=== PATIENT | male | born 1955 | race Caucasian/White ===

== ENCOUNTER 2020-01-15 12:56 | Emergency (ER) | payer MEDICAID ==
[2020-01-15 13:19] VITALS: BP 157/76; PULSE 54
--- NOTE | 2020-01-15 13:50 | EDM.PDOC ---
ED HPI GENERAL MEDICAL PROBLEM - General Chief Complaint: ENT Problem Stated Complaint: BLOODY NOSE THAT WON'T STOP Time Seen by Provider: 01/15/20 13:30 Source of Information: Reports: Patient History Limitations: Reports: No Limitations - History of Present Illness INITIAL COMMENTS - FREE TEXT/NARRATIVE: 64-year-old male with persistent epistaxis from the left nares for the past 3- 1/2 hours. He tried pressure and its not stopping. He is on Eliquis. No trauma, no recent illness. Onset: Sudden (3-1/2 hours ago) Location: Reports: Other (Left nares) - Related Data Allergies Allergy/AdvReac Type Severity Reaction Status Date / Time No Known Allergies Allergy Verified 11/10/18 10:13 Home Meds: Home Meds Clopidogrel Bisulfate [Clopidogrel] 75 mg PO DAILY 11/26/14 [History] FLUoxetine HCl [Fluoxetine] 20 mg PO DAILY 11/26/14 [History] Metoprolol Succinate [Toprol XL] 12.5 mg PO DAILY 11/26/14 [History] allopurinoL [Zyloprim] 100 mg PO DAILY 11/26/14 [History] atorvaSTATin Calcium [Atorvastatin Calcium] 40 mg PO BEDTIME 11/26/14 [History] Tamsulosin HCl [Flomax] 0.4 mg PO DAILY 11/10/18 [History] Triamcinolone Acetonide [Triamcinolone Acetonide 0.1% Crm] 1 applic TOP BID 11/10/18 [History] Apixaban [Eliquis] 5 mg PO BID 01/15/20 [History] Celecoxib [CeleBREX] 100 mg PO BID 01/15/20 [History] Past Medical History HEENT History: Reports: Hard of Hearing, Impaired Vision Cardiovascular History: Reports: Aneurysm, CAD, Heart Murmur, Heart Valve Replacement, Other (See Below) 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 Respiratory History: Reports: None Gastrointestinal History: Reports: Hemorrhoids Genitourinary History: Reports: Prostate Disorder Musculoskeletal History: Reports: Arthritis, Back Pain, Chronic, Fracture, Gout Psychiatric History: Reports: Anxiety, Depression Hematologic History: Reports: Blood Transfusion(s) Dermatologic History: Reports: Other (See Below) Other Dermatologic History: history of athletes foot - Infectious Disease History Infectious Disease History: Reports: Other (See Below) Other Infectious Disease History: states unknown - Past Surgical History HEENT Surgical History: Reports: Other (See Below) Other HEENT Surgeries/Procedures: Detached retinas times two Cardiovascular Surgical History: Reports: Cardiac Ablation, Carotid Stents, Valve Replacement GI Surgical History: Reports: Colonoscopy, Hernia, Inguinal Neurological Surgical History: Reports: Spinal Fusion, Other (See Below) Other Neurological Surgeries/Procedures: arthritic cyst removed from cervical spine, according to patient; history of herniated disc and stenosis Musculoskeletal Surgical History: Reports: Arthroscopic Knee Other Musculoskeletal Surgeries/Procedures:: Back surgery Dermatological Surgical History: Reports: None Social & Family History - Family History Family Medical History: Noncontributory - Tobacco Use Tobacco Use Status *Q: Former Tobacco User Used Tobacco, but Quit: Yes Month/Year Tobacco Last Used: 1986 - Caffeine Use Caffeine Use: Reports: Soda - Recreational Drug Use Recreational Drug Use: No ED ROS ENT - Review of Systems Review Of Systems: See Below Constitutional: Denies: Fever, Chills HEENT: Denies: Rhinitis, Sinus Problem Respiratory: Denies: Shortness of Breath Cardiovascular: Denies: Chest Pain GI/Abdominal: Reports: Nausea. Denies: Vomiting (7) Skin: Reports: No Symptoms Neurological: Denies: Headache ED EXAM, ENT - Physical Exam Exam: See Below Exam Limited By: No Limitations General Appearance: Alert, Anxious Nose: Other (Fresh bleeding is occurring from the left nares despite pressure) Head: Atraumatic Respiratory/Chest: No Respiratory Distress, Lungs Clear Neurological: Alert, Oriented Psychiatric: Anxious Skin: Warm, Dry Course - Vital Signs Last Recorded V/S: Last Vital Signs Temp 96.7 F L 01/15/20 13:15 Pulse 54 L 01/15/20 13:15 Resp 16 01/15/20 13:15 BP 157/76 H 01/15/20 13:15 Pulse Ox 94 L 01/15/20 13:15 - Re-Assessments/Exams Free Text/Narrative Re-Assessment/Exam: 01/15/20 13:49 All the clots were blown out of the left nares, and a 5.5 cm rapid Rhino was placed without difficulty. This stopped the bleeding. He will remove the packing in 24 hours. Return sooner if concerns or complications such as reinitiation of bleeding. Departure - Departure Time of Disposition: 13:58 Disposition: Home, Self-Care 01 Clinical Impression: Left-sided epistaxis - Discharge Information Instructions: Nosebleed, Adult Referrals: Elmo Schmidt MD [Primary Care Provider] - Forms: ED Department Discharge Care Plan Goals: Keep packing in for 24 hours, then remove area and remove packing if no further problems. A small amount of extra air may be helpful if bleeding recurs. Return anytime if not controlling the bleeding despite the packing in place. Sepsis Event Note (ED) - Evaluation Sepsis Screening Result: No Definite Risk - Focused Exam Vital Signs: Vital Signs Temp Pulse Resp BP Pulse Ox 01/15/20 13:15 96.7 F L 54 L 16 157/76 H 94 L
== END 2020-01-15 13:58 | disposition home or self-care (01) ==
LOC: JP.ED 12:56
DX: R04.0 Epistaxis (principal); F41.9 Anxiety disorder, unspecified; F32.9 Major depressive disorder, single episode, unspecified; M19.90 Unspecified osteoarthritis, unspecified site; I25.10 Atherosclerotic heart disease of native coronary artery without angina pectoris; Z87.891 Personal history of nicotine dependence; Z79.899 Other long term (current) drug therapy
CPT/HCPCS: 30903; 99283-25

== ENCOUNTER 2020-04-13 20:37 | Emergency (ER) | payer MEDICAID ==
[2020-04-13] MEDS ORDERED: Sodium Chloride 0.9% 10 ML Syringe FLUSH PRN (21:08)
[2020-04-13] MEDS ORDERED: Sodium Chloride 0.9% 1,000 ML IV ONE (21:22)
--- NOTE | 2020-04-13 22:37 | EDM.PDOC ---
ED HPI GENERAL MEDICAL PROBLEM - General Chief Complaint: General Stated Complaint: FEVER,WEAKNESS Time Seen by Provider: 04/13/20 20:45 Source of Information: Reports: Patient, Old Records History Limitations: Reports: No Limitations - History of Present Illness INITIAL COMMENTS - FREE TEXT/NARRATIVE: Demetrio is a 64-year-old male presenting to the ED for evaluation of generalized body aches, fever, nausea and vomiting, and diarrhea. Patient has had symptoms for the last several weeks. 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 Since the evaluation in the clinic earlier today the patient has developed a fever to 101.3 F, body aches, headache, nausea with repeated vomiting, and diarrhea. The patient was diagnosed with COVID-19 on 03/23/2020. He had symptoms 7 days prior to this. He has never fully recovered since the onset of the symptoms. He did request his primary care provider put him on an antibiotic for the Covid and he just completed the course of it. Is unclear what that antibiotic was. Patient does have a history significant for a porcine pulmonary valve and a history of atrial flutter. denies pain Pain Score (Numeric/FACES): 0 - Related Data Allergies Allergy/AdvReac Type Severity Reaction Status Date / Time No Known Allergies Allergy Verified 04/13/20 21:06 Home Meds: Home Meds Clopidogrel Bisulfate [Clopidogrel] 75 mg PO DAILY 11/26/14 [History] FLUoxetine HCl [Fluoxetine] 20 mg PO DAILY 11/26/14 [History] Metoprolol Succinate [Toprol XL] 12.5 mg PO DAILY 11/26/14 [History] allopurinoL [Zyloprim] 100 mg PO DAILY 11/26/14 [History] atorvaSTATin Calcium [Atorvastatin Calcium] 40 mg PO BEDTIME 11/26/14 [History] Tamsulosin HCl [Flomax] 0.4 mg PO DAILY 11/10/18 [History] Triamcinolone Acetonide [Triamcinolone Acetonide 0.1% Crm] 1 applic TOP BID 11/10/18 [History] Apixaban [Eliquis] 5 mg PO BID 01/15/20 [History] Celecoxib [CeleBREX] 100 mg PO BID 01/15/20 [History] Dorzolamide/Timolol [Cosopt 2%-0.5% Ophth Soln] 1 drop EYEBOTH BID 04/13/20 [History] Vancomycin [Vancocin 125 MG/5 ML Soln] 125 mg PO QID 10 Days #200 ml 04/13/20 [Rx] Past Medical History HEENT History: Reports: Hard of Hearing, Impaired Vision Cardiovascular History: Reports: Aneurysm, CAD, Heart Murmur, Heart Valve Replacement, High Cholesterol, Other (See Below) 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 Respiratory History: Reports: None Gastrointestinal History: Reports: Hemorrhoids Genitourinary History: Reports: Prostate Disorder Musculoskeletal History: Reports: Arthritis, Back Pain, Chronic, Fracture, Gout, Other (See Below) Other Musculoskeletal History: 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 Neurological History: Reports: None Psychiatric History: Reports: Anxiety, Depression Hematologic History: Reports: Anticoagulation Therapy, Blood Transfusion(s) Dermatologic History: Reports: Other (See Below) Other Dermatologic History: history of athletes foot - Infectious Disease History Infectious Disease History: Reports: Novel Coronavirus, Other (See Below) Other Infectious Disease History: states unknown - Past Surgical History HEENT Surgical History: Reports: Other (See Below) Other HEENT Surgeries/Procedures: Detached retinas times two Cardiovascular Surgical History: Reports: Cardiac Ablation, Carotid Stents, Valve Replacement GI Surgical History: Reports: Colonoscopy, Hernia, Inguinal, Other (See Below) Neurological Surgical History: Reports: Spinal Fusion, Other (See Below) Other Neurological Surgeries/Procedures: arthritic cyst removed from cervical spine, according to patient; history of herniated disc and stenosis Musculoskeletal Surgical History: Reports: Arthroscopic Knee Other Musculoskeletal Surgeries/Procedures:: Back surgery Dermatological Surgical History: Reports: None Social & Family History - Family History Family Medical History: No Pertinent Family History - Tobacco Use Tobacco Use Status *Q: Former Tobacco User Used Tobacco, but Quit: Yes Month/Year Tobacco Last Used: 1986 - Caffeine Use Caffeine Use: Reports: Soda - Recreational Drug Use Recreational Drug Use: No ED ROS GENERAL - Review of Systems Review Of Systems: See Below Constitutional: Reports: Fever, Chills, Malaise, Decreased Appetite HEENT: Reports: No Symptoms Respiratory: Reports: No Symptoms Cardiovascular: Reports: No Symptoms Endocrine: Reports: Fatigue GI/Abdominal: Reports: Abdominal Pain, Diarrhea, Nausea, Vomiting : Reports: No Symptoms Musculoskeletal: Reports: Muscle Pain Skin: Reports: No Symptoms Neurological: Reports: Headache Psychiatric: Reports: No Symptoms Hematologic/Lymphatic: Reports: No Symptoms Immunologic: Reports: No Symptoms ED EXAM, GENERAL - Physical Exam Exam: See Below Exam Limited By: No Limitations General Appearance: Alert, Mild Distress Eye Exam: Bilateral Eye: EOMI, PERRL Throat/Mouth: Normal Inspection, Normal Lips, Normal Teeth, Normal Oropharynx, Normal Voice, No Airway Compromise Head: Atraumatic, Normocephalic Neck: Normal Inspection, Supple, Non-Tender, Full Range of Motion. No: Lymphadenopathy (R), Lymphadenopathy (L) Respiratory/Chest: No Respiratory Distress, Lungs Clear, Normal Breath Sounds, No Accessory Muscle Use Cardiovascular: Normal Peripheral Pulses, Regular Rate, Rhythm, No Murmur GI/Abdominal: Soft, No Abnormal Bruit, Tender (Mild generalized tenderness), Abnormal Bowel Sounds (Increased bowel sounds). No: Guarding, Rigid, Rebound Back Exam: Normal Inspection, Full Range of Motion Extremities: Normal Inspection, Normal Range of Motion, No Pedal Edema, Normal Capillary Refill Neurological: Alert, Oriented, Normal Cognition, No Motor/Sensory Deficits Psychiatric: Normal Affect, Normal Mood Skin Exam: Warm, Dry Lymphatic: No Adenopathy Course - Vital Signs Last Recorded V/S: Last Vital Signs Temp 36.0 C L 04/13/20 21:00 Pulse 62 04/13/20 21:00 Resp 16 04/13/20 21:00 BP 113/67 04/13/20 21:00 Pulse Ox 93 L 04/13/20 21:00 - Orders/Labs/Meds Orders: Active Orders 24 hr Category Date Time Status CLOS DIFFICILE PCR W/REFLEX [RM] Stat Lab 04/13/20 22:17 Results CLOSTRIDIUM DIFFICILE TOXIN [RM] Stat Lab 04/13/20 22:17 Results Sodium Chloride 0.9% [Saline Flush] Med 04/13/20 21:08 Active 10 ml FLUSH ASDIRECTED PRN Saline Lock Insert [OM.PC] Routine Oth 04/13/20 21:08 Ordered Medication Orders Sodium Chloride (Saline Flush) 10 ml FLUSH ASDIRECTED PRN PRN Reason: Keep Vein Open Last Admin: 04/13/20 21:30 Dose: 10 ml Documented by: DAVIAN Labs: Laboratory Tests 04/13/20 04/13/20 04/13/20 Range/Units 21:25 21:25 21:25 D-Dimer, Quantitative 372.55 (0.0-500.0) ng/mL Lactic Acid 0.7 (0.4-2.0) mmol/L Ferritin 101 (8-388) ng/ml C-Reactive Protein 2.61 H (0.0-0.3) mg/dL Procalcitonin ng/mL Urine Color (YELLOW) Urine Appearance (CLEAR) Urine pH (5.0-8.0) Ur Specific [place] (1.008-1.030) Urine Protein (NEGATIVE) mg/dL Urine Glucose (UA) (NEGATIVE) mg/dL Urine Ketones (NEGATIVE) mg/dL Urine Occult Blood (NEGATIVE) Urine Nitrite (NEGATIVE) Urine Bilirubin (NEGATIVE) Urine Urobilinogen (0.2-1.0) EU/dL Ur Leukocyte Esterase (NEGATIVE) Urine RBC (0-5) Urine WBC (0-5) Ur Epithelial Cells Amorphous Sediment Urine Bacteria Urine Mucus 04/13/20 04/13/20 Range/Units 21:25 22:17 D-Dimer, Quantitative (0.0-500.0) ng/mL Lactic Acid (0.4-2.0) mmol/L Ferritin (8-388) ng/ml C-Reactive Protein (0.0-0.3) mg/dL Procalcitonin 0.08 ng/mL Urine Color Yellow (YELLOW) Urine Appearance Clear (CLEAR) Urine pH 5.5 (5.0-8.0) Ur Specific [place] >= 1.030 (1.008-1.030) Urine Protein 30 H (NEGATIVE) mg/dL Urine Glucose (UA) Negative (NEGATIVE) mg/dL Urine Ketones Trace H (NEGATIVE) mg/dL Urine Occult Blood Negative (NEGATIVE) Urine Nitrite Positive H (NEGATIVE) Urine Bilirubin Small H (NEGATIVE) Urine Urobilinogen 0.2 (0.2-1.0) EU/dL Ur Leukocyte Esterase Negative (NEGATIVE) Urine RBC 0-5 (0-5) Urine WBC 0-5 (0-5) Ur Epithelial Cells Not seen Amorphous Sediment Not seen Urine Bacteria Rare Urine Mucus Many Meds: Medications Generic Name Dose Route Start Last Admin Trade Name Freq PRN Reason Stop Dose Admin Sodium Chloride 10 ml 04/13/20 21:08 04/13/20 21:30 Saline Flush FLUSH 10 ml ASDIRECTED PRN Administration Keep Vein Open Discontinued Medications Generic Name Dose Route Start Last Admin Trade Name Rohini PRN Reason Stop Dose Admin Sodium Chloride 1,000 mls @ 999 mls/hr 04/13/20 21:22 04/13/20 21:30 Normal Saline IV 04/13/20 22:22 999 mls/hr .BOLUS ONE Administration Vancomycin HCl 125 mg 04/13/20 23:36 Vancocin 250 Mg/5 Ml Soln PO 04/13/20 23:37 ONETIME STA - Re-Assessments/Exams Free Text/Narrative Re-Assessment/Exam: 04/13/20 22:37 reviewed the patient's labs from the clinic earlier today showing a CBC with a leukocytosis count of 14.1. Unfortunate there is no differential on that. His comprehensive metabolic panel is unremarkable. We obtained Covid labs including a ferritin, lactic acid, D-dimer, procalcitonin, and CRP. The only abnormality is his CRP is elevated at 2.6. Urinalysis was obtained showing positive nitrate and bili but no evidence for infection. 04/13/20 23:41 C. difficile toxin assay is positive consistent with acute C. difficile colitis. We will start the patient on vancomycin 125 mg 4 times daily for 10 days to treat this. 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 We will send him home with a prescription for Zofran so he is able to remain hydrated. Patient is feeling better after receiving IV normal saline. He should follow up with his primary care provider later next week to ensure that he is improving from the C. difficile colitis. Indications return to the ED were discussed. Departure - Departure Time of Disposition: 23:43 Disposition: Home, Self-Care 01 Condition: Fair Clinical Impression: Nausea vomiting and diarrhea, Clostridium difficile colitis, Dehydration - Discharge Information *PRESCRIPTION DRUG MONITORING PROGRAM REVIEWED*: Not Applicable *COPY OF PRESCRIPTION DRUG MONITORING REPORT IN PATIENT CHERYL: Not Applicable Prescriptions: Vancomycin [Vancocin 125 MG/5 ML Soln] 125 mg PO QID 10 Days #200 ml Instructions: Clostridioides Difficile Infection, Rehydration, Adult, Nausea and Vomiting, Adult, [id number], Food Choices to Help Relieve Diarrhea, Adult Referrals: Elmo Schmidt MD [Primary Care Provider] - Forms: ED Department Discharge Care Plan Goals: It appears by your work-up today that you have developed antibiotic induced C. difficile colitis which is an infection involving the large intestine causing significant pain and diarrhea. This is a relatively difficult infection to treat and is only susceptible to vancomycin and linezolid. We will start you on vancomycin 125 mg 4 times a day for the next 10 days. The diarrhea will likely continue until the infection improves. I would like you to follow-up with your primary care provider, Dr. Schmidt, towards the latter part of next week for a recheck. I am also sending you home with a prescription for Zofran to keep your nausea under control so that you may remain hydrated. Sepsis Event Note (ED) - Evaluation Sepsis Screening Result: No Definite Risk - Focused Exam Vital Signs: Vital Signs Temp Pulse Resp BP Pulse Ox 04/13/20 21:00 36.0 C L 62 16 113/67 93 L 04/13/20 20:57 36.0 C L 62 16 113/67 93 L - Problem List & Annotations (1) Clostridium difficile colitis SNOMED Code(s): 879572779 Code(s): A04.72 - ENTEROCOLITIS D/T CLOSTRIDIUM DIFFICILE, NOT SPCF RECUR Status: Acute Priority: High Current Visit: Yes (2) Dehydration SNOMED Code(s): 54991627 Code(s): E86.0 - DEHYDRATION Status: Acute Priority: High Current Visit: Yes (3) Nausea vomiting and diarrhea SNOMED Code(s): 1390894 Code(s): R11.2 - NAUSEA WITH VOMITING, UNSPECIFIED; R19.7 - DIARRHEA, UNSPECIFIED Status: Acute Priority: High Current Visit: Yes - Problem List Review Problem List Initiated/Reviewed/Updated: Yes - My Orders Last 24 Hours: My Active Orders 04/13/20 21:08 Sodium Chloride 0.9% [Saline Flush] 10 ml FLUSH ASDIRECTED PRN Saline Lock Insert [OM.PC] Routine 04/13/20 22:17 CLOS DIFFICILE PCR W/REFLEX [RM] Stat CLOSTRIDIUM DIFFICILE TOXIN [RM] Stat - Assessment/Plan Last 24 Hours: My Active Orders 04/13/20 21:08 Sodium Chloride 0.9% [Saline Flush] 10 ml FLUSH ASDIRECTED PRN Saline Lock Insert [OM.PC] Routine 04/13/20 22:17 CLOS DIFFICILE PCR W/REFLEX [RM] Stat CLOSTRIDIUM DIFFICILE TOXIN [RM] Stat
[2020-04-13] MEDS ORDERED: Vancomycin 250 MG/5 ML ML Oral Solution PO STA (23:36)
[2020-04-13] MEDS ORDERED: Acetaminophen 325 MG Tab PO ONE (23:48)
[2020-04-14] MEDS ORDERED: Vancomycin 250 MG/5 ML ML Oral Solution PO SCH
[2020-04-14 00:13] VITALS: BP 127/73; PULSE 74
== END 2020-04-14 00:21 | disposition home or self-care (01) ==
LOC: JP.ED 20:37
DX: E86.0 Dehydration (principal); A04.72 Enterocolitis due to Clostridium difficile, not specified as recurrent; I25.10 Atherosclerotic heart disease of native coronary artery without angina pectoris; E78.00 Pure hypercholesterolemia, unspecified; M10.9 Gout, unspecified; Z87.891 Personal history of nicotine dependence; Z79.01 Long term (current) use of anticoagulants; Z79.02 Long term (current) use of antithrombotics/antiplatelets; Z79.899 Other long term (current) drug therapy
CPT/HCPCS: 36415; 81001; 82728; 83605; 84145; 85379; 86140; 87493; 99283; A9270; J7030

== ENCOUNTER 2021-07-22 08:08 | Emergency (ER) | payer MEDICAID ==
[2021-07-22 08:36] VITALS: BP 130/77; PULSE 104
[2021-07-22] MEDS ORDERED: Sodium Chloride 0.9% 10 ML Syringe FLUSH PRN (09:05)
[2021-07-22] MEDS ORDERED: Sodium Chloride 0.9% 1,000 ML IV SCH (09:15)
[2021-07-22] MEDS ORDERED: Ibutilide 1 MG/10 ML Vial IVPUSH ONE (09:54)
[2021-07-22] MEDS ORDERED: Propofol 200 MG/20 ML SDV ONE (11:08)
== END 2021-07-22 12:52 | disposition home or self-care (01) ==
LOC: JP.ED 08:08
DX: I48.91 Unspecified atrial fibrillation (principal); I48.92 Unspecified atrial flutter; I25.10 Atherosclerotic heart disease of native coronary artery without angina pectoris; M10.9 Gout, unspecified; E78.00 Pure hypercholesterolemia, unspecified; Z79.02 Long term (current) use of antithrombotics/antiplatelets; Z79.899 Other long term (current) drug therapy; Z86.16 Personal history of COVID-19; Z79.01 Long term (current) use of anticoagulants
CPT/HCPCS: 36415; 80053; 83735; 84484; 85025; 92960; 93005; 93010; 99283; 99285-25; J1742; J2704; J3490; J7030

== ENCOUNTER 2021-09-12 06:23 | Day surgery (SDC) | payer MEDICAID ==
[2021-09-12] MEDS ORDERED: Midazolam 1 MG/ML 2 ML SDV ONE (07:15)
[2021-09-12] MEDS ORDERED: Propofol 200 MG/20 ML SDV ONE (07:15)
[2021-09-12] MEDS ORDERED: fentaNYL 100 MCG/2 ML SDV ONE (07:15)
[2021-09-12] MEDS ORDERED: Lactated Ringers 1,000 ML IV SCH (07:30)
[2021-09-12 09:32] VITALS: BP 123/58; PULSE 70
== END 2021-09-12 09:37 | disposition home or self-care (01) ==
LOC: JP.SDS 06:23
PROVIDERS: ATTEND Family Medicine
DX: Z12.11 Encounter for screening for malignant neoplasm of colon (principal); I25.10 Atherosclerotic heart disease of native coronary artery without angina pectoris; G47.33 Obstructive sleep apnea (adult) (pediatric); I10 Essential (primary) hypertension; E66.9 Obesity, unspecified; E78.5 Hyperlipidemia, unspecified; Z98.890 Other specified postprocedural states; Z88.8 Allergy status to other drugs, medicaments and biological substances; Z68.31 Body mass index [BMI] 31.0-31.9, adult
CPT/HCPCS: 45378; J2250; J2704; J3010; J7120

== ENCOUNTER 2023-01-05 07:16 | Day surgery (SDC) | payer MEDICARE, BC ==
[~2023-01-05 07:16] MED LIST: Bupivacaine 0.5% 30 ML SDV ONE; Midazolam 1 MG/ML 2 ML SDV ONE; Propofol 200 MG/20 ML SDV ONE; fentaNYL 100 MCG/2 ML SDV ONE
[2023-01-05] MEDS ORDERED: Lidocaine 0.5% 50 ML SDV ONE (07:19)
[2023-01-05] MEDS ORDERED: ceFAZolin 2 GM in Premix Bag 1 BAG IV ONE (07:31)
[2023-01-05] MEDS ORDERED: Nozin Nasal Sanitizer NASBOTH ONE (07:32)
[2023-01-05 07:42] LABS: HEMATOCRIT 42.8 % (38.4-49.7); MEAN CORPUSCULAR HEMOGLOBIN 31.2 pg (31.6-35.5); RED BLOOD CELL COUNT 4.81 M/uL (4.14-5.76); WHITE BLOOD CELL COUNT,WBC 6.4 K/uL (3.2-11.0)
[2023-01-05] MEDS ORDERED: Lactated Ringers 1,000 ML IV SCH (07:45)
[2023-01-05 08:03] LABS: A/G RATIO 1.3 (1.2-2.2); ALANINE AMINOTRANSFERASE,ALT 40 U/L (12-78); ALBUMIN 3.8 g/dL (3.4-5.0); ALKALINE PHOSPHATASE 71 U/L (46-116); ANION GAP 8.8 mmol/L (5.0-14.0); ASPARTATE AMNIOTRANSFERASE,AST 27 U/L (15-37); BILIRUBIN TOTAL 1.2 mg/dL (0.2-1.0); BLOOD UREA NITROGEN,BUN 18 mg/dL (7-18); CALCIUM 8.6 mg/dL (8.5-10.1); CARBON DIOXIDE,CO2 28 mmol/L (21-32); CHLORIDE,CL 104 mmol/L (100-108); CREATININE 0.9 mg/dL (0.8-1.3); ESTIMATED GFR 95 mL/min (>60); GLUCOSE RANDOM 100 mg/dL (74-106); PROTEIN TOTAL,TP 6.8 g/dL (6.4-8.2); SODIUM,NA 141 mmol/L (140-148)
[2023-01-05] MEDS ORDERED: Propofol 200 MG/20 ML SDV ONE ×2 (09:04→09:48)
[2023-01-05 11:42] VITALS: BP 104/63; PULSE 51
== END 2023-01-05 11:55 | disposition home or self-care (01) ==
LOC: JP.SDS 07:16
PROVIDERS: ATTEND Specialist
DX: G56.02 Carpal tunnel syndrome, left upper limb (principal); M18.12 Unilateral primary osteoarthritis of first carpometacarpal joint, left hand; E78.5 Hyperlipidemia, unspecified; I10 Essential (primary) hypertension; I48.91 Unspecified atrial fibrillation; E66.9 Obesity, unspecified; Z88.0 Allergy status to penicillin; Z88.2 Allergy status to sulfonamides; Z88.8 Allergy status to other drugs, medicaments and biological substances
CPT/HCPCS: 25447; 36415; 64721; 80053; 85027; 93005; A9270; C1768; J0690; J2250; J2704; J3010; J3490; J7120

== ENCOUNTER 2023-10-25 08:58 | Emergency (ER) | payer MEDICARE, BC ==
[2023-10-25] MEDS ORDERED: Sodium Chloride 0.9% 10 ML Syringe FLUSH PRN (10:15)
[2023-10-25] MEDS ORDERED: Sodium Chloride 0.9% 80 ML IV SCH (10:15)
[2023-10-25 11:11] VITALS: BP 120/64; PULSE 52
[2023-10-25] MEDS: Iopamidol 612 MG/ML 100 ML Bottle IV PRN (12:09)
== END 2023-10-25 12:43 | disposition home or self-care (01) ==
LOC: JP.ED 08:58
DX: S70.11XA Contusion of right thigh, initial encounter (principal); S80.11XA Contusion of right lower leg, initial encounter; I48.91 Unspecified atrial fibrillation; I25.10 Atherosclerotic heart disease of native coronary artery without angina pectoris; I10 Essential (primary) hypertension; E78.00 Pure hypercholesterolemia, unspecified; Z88.0 Allergy status to penicillin; Z88.2 Allergy status to sulfonamides; Z88.8 Allergy status to other drugs, medicaments and biological substances; Z79.01 Long term (current) use of anticoagulants; Z79.899 Other long term (current) drug therapy; Z86.16 Personal history of COVID-19; W22.8XXA Striking against or struck by other objects, initial encounter; Y93.89 Activity, other specified
CPT/HCPCS: 73502; 73701; 76377; 99284; Q9967

== ENCOUNTER 2023-11-25 05:39 | Emergency (ER) | payer MEDICARE, BC ==
[2023-11-25 05:50] VITALS: BP 151/84; PULSE 62
== END 2023-11-25 06:40 | disposition home or self-care (01) ==
LOC: JP.ED 05:39
DX: M25.562 Pain in left knee (principal); I25.10 Atherosclerotic heart disease of native coronary artery without angina pectoris; I10 Essential (primary) hypertension; E78.00 Pure hypercholesterolemia, unspecified; E66.9 Obesity, unspecified; Z86.16 Personal history of COVID-19; Z87.891 Personal history of nicotine dependence; I48.91 Unspecified atrial fibrillation; Z79.01 Long term (current) use of anticoagulants; Z79.899 Other long term (current) drug therapy; Z88.1 Allergy status to other antibiotic agents; Z88.2 Allergy status to sulfonamides; Z88.8 Allergy status to other drugs, medicaments and biological substances
CPT/HCPCS: 73562-26-LT; 73562-LT; 99283

== ENCOUNTER 2024-12-26 06:07 | Day surgery (SDC) | payer MEDICARE, BC ==
[2024-12-26 06:26] LABS: PLATELET COUNT,PLT 167.0 K/uL (130-375); RED BLOOD CELL COUNT 4.98 M/uL (4.14-5.76); WHITE BLOOD CELL COUNT,WBC 6.7 K/uL (3.2-11.0)
[2024-12-26] MEDS: Nozin Nasal Sanitizer NASBOTH ONE (06:39)
[2024-12-26 06:41] LABS: BLOOD UREA NITROGEN,BUN 13.0 mg/dL (7-18); CARBON DIOXIDE,CO2 30.0 mmol/L (21-32); CHLORIDE,CL 102.0 mmol/L (100-108); CREATININE 0.9 mg/dL (0.8-1.3); EST CRCL DRUG DOSING (CG) 97.78 mL/min; ESTIMATED GFR 94.0 mL/min (>60); GLUCOSE RANDOM 106.0 mg/dL (74-106); POTASSIUM,K 4.1 mmol/L (3.6-5.2); SODIUM,NA 140.0 mmol/L (140-148)
[2024-12-26] MEDS: Lactated Ringers 1,000 ML IV SCH (06:51)
[2024-12-26] MEDS ORDERED: Propofol 200 MG/20 ML SDV ONE ×4 (07:18→09:09)
[2024-12-26] MEDS ORDERED: fentaNYL 100 MCG/2 ML SDV ONE ×2 (07:18→08:49)
[2024-12-26] MEDS ORDERED: Midazolam 1 MG/ML 2 ML SDV ONE (07:18)
[2024-12-26] MEDS ORDERED: Lactated Ringers 1,000 ML ONE (09:22)
[2024-12-26] MEDS: Acetaminophen/HYDROcodone 325-5 MG Tab PO PRN (11:28)
[2024-12-26 11:34] VITALS: BP 120/69; PULSE 45
== END 2024-12-26 11:44 | disposition home or self-care (01) ==
LOC: JP.SDS 06:07
PROVIDERS: ATTEND Specialist
DX: G56.01 Carpal tunnel syndrome, right upper limb (principal); M18.11 Unilateral primary osteoarthritis of first carpometacarpal joint, right hand; Q68.1 Congenital deformity of finger(s) and hand
CPT/HCPCS: 01810; 25447; 36415; 64721; 76000; 80048; 85027; 93005; 93010; A9270; C1768; J0690; J2250; J2704; J3010; J7120; J0665